=== PATIENT | male | born 1995 | race Asian ===

== ENCOUNTER 2024-04-07 15:49 | Outpatient (CLI) | payer BC | END 2024-04-07 15:50 | disposition home or self-care (01) | LOC: NAV RAD 15:49 | PROVIDERS: ATTEND Family Medicine | DX: S89.92XA Unspecified injury of left lower leg, initial encounter (principal); M25.462 Effusion, left knee; S82.192A Other fracture of upper end of left tibia, initial encounter for closed fracture ==

== ENCOUNTER 2024-04-09 06:52 | Outpatient (CLI) | payer BC ==
[2024-04-09 07:24] LABS: Bilirubin Negative (Negative); Blood, Urine Negative (Negative); Clarity Clear (Clear); Glucose, Urine (Dipstick) Negative (Negative); Ketone, Urine Trace mg/dL (Negative); Leukocyte Negative (Negative); Nitrite Negative (Negative); Protein, Urine (Dipstick) Negative (Neg-Trace); Urobilinogen 0.2 mg/dL (Less than 2)
[2024-04-09 07:27] LABS: #Basophils 0.1 thou/uL (0.0-0.2); #Eosinophils 0.1 thou/uL (0.0-0.7); #Lymphocytes 1.7 thou/uL (1.20-3.40); #Monocytes 0.6 thou/uL (0.11-0.59); %Basophils 0.8 % (0.0-1.0); %Lymphocytes 26.6 % (21.0-51.0); %Monocytes 9.1 % (0.0-10.0); %Neutrophils 61.5 % (42.0-75.0); Hematocrit 48.8 % (42.0-52.0); Hemoglobin 16.9 g/dL (14.0-18.0); Mean Corpuscular HGB CONC 34.5 g/dL (32.0-36.0); Mean Corpuscular Volume 83.9 fl (78.0-98.0); Mean Platelet Volume 6.6 fL (7.4-10.4); Platelet Count 283 10x3/uL (130-400); RBC Distribution Width 11.2 % (11.5-14.5); Red Blood Cell (RBC) Count 5.82 mill/uL (4.70-6.10); White Blood Cell (WBC) Count 6.5 10x3/uL (4.8-10.8)
[2024-04-09 07:30] LABS: Bacteria/HPF Rare-Few HPF (None Seen); RBC/HPF 0-3 HPF (0-3); WBC/HPF 0-3 HPF (0-3)
[2024-04-09 07:37] LABS: ALT (SGPT) 32 U/L (8-55); AST (SGOT) 19 U/L (5-34); Albumin 4.2 g/dL (3.5-5.0); Alkaline Phosphatase 53 U/L (40-110); Anion Gap 13 mmol/L (10-20); BUN (Urea Nitrogen) 12 mg/dL (8.9-20.6); Bilirubin, Total 0.7 mg/dL (0.2-1.2); Calc. Creatinine Clearance 0 mL/min (70-130); Calcium 9.5 mg/dL (7.8-10.44); Carbon Dioxide 25 mmol/L (22-29); Cardiac Risk 6.8 (Less than 4.5); Chloride 105 mmol/L (98-107); Cholesterol 204 mg/dl (< 200 Desired); Estimated GFR 122; Globulin 4.3 g/dL (2.4-3.5); Glucose 88 mg/dL (70-105); HDL Cholesterol 30 mg/dL (>60 Neg Risk); LDL Cholesterol, Calculated 157 mg/dL; Potassium 4.1 mmol/L (3.5-5.1); Protein, Total 8.5 g/dL (6.0-8.3); Sodium 139 mmol/L (136-145); Triglycerides 85 mg/dL (Less than 150)
== END 2024-04-09 06:53 | disposition home or self-care (01) ==
LOC: NAV LAB 06:52
PROVIDERS: ATTEND Family Medicine
DX: Z00.00 Encounter for general adult medical examination without abnormal findings (principal)
CPT/HCPCS: 36415; 80053; 80061; 81001; 85025